=== PATIENT | male | born 1995 | race American Indian/Alaskan Native ===

== ENCOUNTER 2017-02-11 13:33 | Emergency (ER) | payer OTHER ==
[2017-02-11] MEDS ORDERED: MOTRIN PO ONE (16:34)
--- NOTE | 2017-02-11 17:19 | Emergency Department Report ---
Entered by ALIYA TRAYLOR, acting as scribe for OSIRIS MATTA PA. ED ENT HPI - General Chief complaint: Sore Throat Stated complaint: ALLERGIC REACTION Time Seen by Provider: 02/11/17 16:27 Source: patient Mode of arrival: Ambulatory Limitations: No Limitations - History of Present Illness Initial comments: 21 year old male presents to the ED for evaluation of sore throat for 3 days with associated subjective fever. He notes pain worsens with swallowing. Patient is concerned he is having an allergic reaction to his girlfriends perfume. However, he denies throat swelling, facial swelling, and shortness of breath. Denies chills, chest pain, abdominal pain, nausea, vomiting. MD complaint: sore throat Onset/Timin -: days(s) Location: throat Severity: moderate Worsens with: swallowing, other (talking) Associated Symptoms: fever (subjective), pain with swallowing, sore throat. denies: other (lip swelling, facial swelling, throat swelling, rash, chest pain , shortness of breath, abdominal pain, nausea, vomiting) - Related Data Previous Rx's Medication Instructions Recorded Last Taken Type Ibuprofen [Motrin 800 MG tab] 800 mg PO Q8HR PRN #30 tablet 02/11/17 Unknown Rx Penicillin Vk [Veetids TAB] 250 mg PO QID #40 tablet 02/11/17 Unknown Rx Allergies Allergy/AdvReac Type Severity Reaction Status Date / Time No Known Allergies Allergy Unverified 02/11/17 14:31 ED Dental HPI - General Chief complaint: Sore Throat Stated complaint: ALLERGIC REACTION Time Seen by Provider: 02/11/17 16:27 Source: patient Mode of arrival: Ambulatory Limitations: No Limitations - Related Data Previous Rx's Medication Instructions Recorded Last Taken Type Ibuprofen [Motrin 800 MG tab] 800 mg PO Q8HR PRN #30 tablet 02/11/17 Unknown Rx Penicillin Vk [Veetids TAB] 250 mg PO QID #40 tablet 02/11/17 Unknown Rx Allergies Allergy/AdvReac Type Severity Reaction Status Date / Time No Known Allergies Allergy Unverified 02/11/17 14:31 ED Review of Systems Comment: All other systems reviewed and negative Constitutional: fever (subjective). denies: chills ENT: throat pain. denies: other (throat swelling, lip swelling, facial swelling ) Respiratory: denies: shortness of breath Cardiovascular: denies: chest pain Gastrointestinal: denies: abdominal pain, nausea, vomiting Skin: denies: rash ED Past Medical Hx - Past Medical History Previous Medical History?: No - Surgical History Past Surgical History?: No - Social History Smoking Status: Never Smoker Substance Use Type: Alcohol - Medications Home Medications: Home Medications Medication Instructions Recorded Confirmed Last Taken Type Ibuprofen [Motrin 800 MG tab] 800 mg PO Q8HR PRN #30 tablet 02/11/17 Unknown Rx Penicillin Vk [Veetids TAB] 250 mg PO QID #40 tablet 02/11/17 Unknown Rx ED Physical Exam - General Limitations: No Limitations - Other Other exam information: GENERAL: Patient is alert and oriented x 3. No apparent distress. HEAD: Head is normocephalic and atraumatic. EYES: Extraocular movements are intact. Pupils are equal, round, and reactive to light and accommodation. EARS: Symmetrical, atraumatic, non tender, ear canal clear with moderate cerumen , tympanic membrane non inflamed. Gross auditory nml bilaterally. NOSE: Nose symmetrical, nontender. Nares appeared normal. MOUTH:Mouth is well hydrated and without lesions. Mucous membranes are moist. Uvula midline. Tongue not elevated or swollen. Tonsillar exudate present bilaterally. No erythema or swelling. Patent airway. NECK: Supple. No lymphadenopathy or thyromegaly. LUNGS: Symmetrical with respiration. Clear to auscultation bilaterally. No wheezing, rales or crackles. HEART: Regular rate and rhythm with normal S1/S2 present. No murmurs, rubs, or gallops. SKIN: Warm and dry. No lesions, ulceration or induration present PSYCHIATRIC: Mood is congruent with affect. ED Course Vital Signs 02/11/17 14:31 Temperature 98.8 F Pulse Rate 89 Respiratory 20 Rate Blood Pressure 125/68 O2 Sat by Pulse 100 Oximetry ED Medical Decision Making - Medical Decision Making 21 year old male patient presents today with sore throat x 3 days. His rapid strep reveals negative. Patient is in no acute distress at this time. He will be discharged home and is encouraged to follow up with a primary care provider. He is encouraged to return to the emergency room for any worsening symptoms. ED Disposition Clinical Impression: Sorethroat Pharyngitis Qualifiers: Pharyngitis/tonsillitis etiology: unspecified etiology Qualified Code(s): J02.9 - Acute pharyngitis, unspecified Disposition: DISCHARGED TO HOME OR SELFCARE Is pt being admited?: No Does the pt Need Aspirin: No Condition: Stable Instructions: Pharyngitis (ED) Additional Instructions: Take antibiotic and pain medication as prescribed. If symptoms get worse or does not improve please follow up with her primary care provider. Prescriptions: Ibuprofen [Motrin 800 MG tab] 800 mg PO Q8HR PRN #30 tablet PRN Reason: Pain Penicillin Vk [Veetids TAB] 250 mg PO QID #40 tablet Referrals: PRIMARY CARE,MD [Primary Care Provider] - 3-5 Days Forms: Work/School Release Form(ED) This documentation as recorded by the KYMBERLY sherwood REBEKAH,accurately reflects the service I personally performed and the decisions made by ,OSIRIS MATTA, PA.
[2017-02-11 17:51] VITALS: BP 113/62
== END 2017-02-11 17:52 | disposition home or self-care (01) ==
LOC: ED 13:33
DX: J02.9 Acute pharyngitis, unspecified (principal)
CPT/HCPCS: 87116; 87430; 99282